=== PATIENT | male | born 1965 ===

== ENCOUNTER 2016-12-04 17:37 | Emergency (ER) | payer SELFPAY ==
[~2016-12-04] VITALS: Ht 175.3 cm; Wt 75.0 kg
[2016-12-04 17:40] VITALS: BP 168/91; PULSE 100; RESP 13; TEMP 98.6; O2SAT 99
--- NOTE | 2016-12-04 19:09 | PD ---
HPI Chief Complaint: Dizziness Time Seen by Provider: 18:58 Travel History International Travel<30 days: No Contact w/Intl Traveler<30days: No Traveled to known affect area: No History of Present Illness HPI patient c/o some dizzy spells which have become more frequent since running out of norvasc 1 month ago, [place] is [place] and does not have a local doc yet but is working on it. no alleviating/aggravating factors, denies cp/sob/abdpain/n/v/d/ PFSH Social History Tobacco Use: No Allergies-Medications (Allergen,Severity, Reaction): Coded Allergies: Penicillins (Verified Allergy, Severe, Hives, 12/04/16) Reported Meds & Prescriptions Reported Meds & Active Scripts Active Amlodipine (Amlodipine Besylate) 10 Mg Tab 10 Mg PO DAILY Reported Norvasc (Amlodipine Besylate) 10 Mg Tab 10 Mg PO DAILY Review of Systems Except as stated in HPI: all other systems reviewed are Neg General / Constitutional: No: Fever Eyes: No: Visual changes HENT: Positive: Lightheadedness Cardiovascular: No: Chest Pain or Discomfort Respiratory: No: Shortness of Breath Gastrointestinal: No: Abdominal Pain Genitourinary: No: Dysuria Musculoskeletal: No: Pain Skin: No Rash Neurologic: No: Weakness Psychiatric: No: Depression Endocrine: No: Polydipsia Hematologic/Lymphatic: No: Easy Bruising Physical Exam Narrative GENERAL: SKIN: Warm and dry. HEAD: Atraumatic. Normocephalic. EYES: Pupils equal and round. No scleral icterus. No injection or drainage. ENT: No nasal bleeding or discharge. Mucous membranes pink and moist. NECK: Trachea midline. No JVD. CARDIOVASCULAR: Regular rate and rhythm. RESPIRATORY: No accessory muscle use. Clear to auscultation. Breath sounds equal bilaterally. GASTROINTESTINAL: Abdomen soft, non-tender, nondistended. MUSCULOSKELETAL: Extremities without clubbing, cyanosis, or edema. No obvious deformities. NEUROLOGICAL: Awake and alert. No obvious cranial nerve deficits. Motor grossly within normal limits. Five out of 5 muscle strength in the arms and legs. Normal speech. PSYCHIATRIC: Appropriate mood and affect; insight and judgment normal. Data Data Last Documented VS Vital Signs Date Time Temp Pulse Resp B/P (MAP) Pulse Ox O2 Delivery O2 Flow Rate FiO2 12/04/16 20:43 12/04/16 20:03 16 10/27/17 19:28 82 100 Room Air 12/04/16 17:[address] Brain W/O Iv Contrast(Rout) (12/04/16 19:24) Amlodipine (Norvasc) (12/04/16 19:30) Ed Discharge Order (12/04/16 20:25) MDM Medical Decision Making Medical Screen Exam Complete: Yes Emergency Medical Condition: Yes Medical Record Reviewed: Yes Differential Diagnosis vertigo v htn v ich Narrative Course ct neg for ich/sinusitis. on examination no nystagmus noted, and after providing norvasc po in ed and observing patient both patients symptoms and bp improved Diagnosis Primary Impression: HTN (hypertension) Qualified Codes: I10 - Essential (primary) hypertension Additional Impression: Medication refill Patient Instructions: General Instructions, Hypertension (DC) Scripts Amlodipine (Amlodipine) 10 Mg Tab 10 MG PO DAILY for Blood Pressure Management, #90 TAB 0 Refills Prov: Gokul Montalvo MD 12/04/16 Disposition: 01 DISCHARGE HOME Condition: Stable Gokul Montalvo MD Dec 04, 2016 19:09
[2016-12-04 19:28] VITALS: BP 172/94; PULSE 82; RESP 16; O2SAT 100
[2016-12-04] MEDS ORDERED: AMLO10 PO (19:31)
[2016-12-04 20:03] VITALS: BP 161/87; RESP 16
--- NOTE | 2016-12-04 20:05 | RADRPT ---
EXAM DATE/TIME: 12/04/2016 19:52 [facility] COMPARISON: No previous studies available for comparison. INDICATIONS : Dizziness and blurred vision. Patient has not taken his medication for one month. RADIATION DOSE: 39.08 CTDIvol (mGy) MEDICAL HISTORY : Hypertension. SURGICAL HISTORY : None. ENCOUNTER: Initial ACUITY: 1 month PAIN SCALE: 0/10 LOCATION: cranial TECHNIQUE: Multiple contiguous axial images were obtained of the head. Using automated exposure control and adj ustment of the mA and/or kV according to patient size, radiation dose was kept as low as reasonably a chievable to obtain optimal diagnostic quality images. DICOM format image data is available electro nically for review and comparison. FINDINGS: CEREBRUM: The ventricles are normal for age. No evidence of midline shift, mass lesion, hemorrhage or acute in farction. No extra-axial fluid collections are seen. POSTERIOR FOSSA: The cerebellum and brainstem are intact. The 4th ventricle is midline. The cerebellopontine angle i s unremarkable. EXTRACRANIAL: The visualized portion of the orbits is intact. SKULL: The calvaria is intact. No evidence of skull fracture. CONCLUSION: Normal examination. Sergio Hartman MD on December 04, 2016 at 20:02 Board Certified Radiologist. This report was verified electronically.
[2016-12-04] MEDS ORDERED: AMLO10TA2 PO (20:24)
== END 2016-12-04 20:51 | disposition home or self-care (01) ==
LOC: EDBD 17:37 → NEPD 17:37
DX: I10 Essential (primary) hypertension (principal); R42 Dizziness and giddiness; Z76.0 Encounter for issue of repeat prescription; Z88.0 Allergy status to penicillin; Z79.899 Other long term (current) drug therapy
CPT/HCPCS: 70450; 99284